=== PATIENT | male | born 1960 | race Caucasian/White ===

== ENCOUNTER 2017-10-22 12:03 | Emergency (ER) | payer SELFPAY ==
[~2017-10-22] VITALS: Ht 167.6 cm; Wt 50.0 kg
[~2017-10-22 12:03] MED LIST: ALBU6.7H INH; DOXY100T18 PO; PRED20 PO; TIOT12.9 INH
[2017-10-22 12:06] VITALS: BP 147/89; PULSE 92; RESP 32; O2SAT 97
[2017-10-22 13:00] LABS: AUTOMATED NEUTROPHIL # 4.9 TH/MM3 (1.8-7.7); BASOPHIL # 0.1 TH/MM3 (0-0.2); BASOPHIL % 1.2 % (0.0-2.0); EOSINOPHIL # 0.2 TH/MM3 (0-0.4); HEMATOCRIT 46.7 % (39.0-51.0); HEMOGLOBIN 15.4 GM/DL (13.0-17.0); LYMPH % 32.7 % (9.0-44.0); MEAN CELL VOLUME 100.6 FL (80.0-100.0); MEAN CORPUSCULAR HEMOGLOBIN 33.1 PG (27.0-34.0); MEAN CORPUSCULAR HGB CONC 32.9 % (32.0-36.0); MONO % 10.2 % (0.0-8.0); MONOCYTE # 0.9 TH/MM3 (0-0.9); NEUT % 53.9 % (16.0-70.0); PLATELET COUNT 327 TH/MM3 (150-450); RED BLOOD COUNT 4.64 MIL/MM3 (4.50-5.90); RED CELL DISTRIBUTION WIDTH 14.6 % (11.6-17.2); WHITE BLOOD COUNT 9.2 TH/MM3 (4.0-11.0)
--- NOTE | 2017-10-22 13:18 | PD ---
HPI Chief Complaint: Respiratory Symptoms Time Seen by Provider: 13:12 Travel History International Travel<30 days: No Contact w/Intl Traveler<30days: No Traveled to known affect area: No History of Present Illness HPI 57-year-old male with history of COPD, presents to the emergency department with worsening increased shortness of breath and cough over the past 1-1/2 weeks. Patient was last seen for this in September 2014. Patient has a long smoking history, and states he is currently down to 1 pack of cigarettes per day. Patient is unable to afford medications to treat his symptoms. He states he did buy a nebulizer from a friend but does not have the equipment or medication for it. Patient denies fever, chills, or other symptoms. He states his cough is not significantly productive. He has no local primary care physician. Patient states his breathing much worse, which he blames the weather for. Patient states he is having difficulty sleeping secondary to being short of breath. He denies pain, nausea, vomiting, or abdominal pain. He has no chest pain per se. He has no known drug allergies. PFSH Past Medical History COPD: Yes Diminished Hearing: No Musculoskeletal: Yes (CHRONIC BACK PAIN ) Respiratory: Yes Tetanus Vaccination: Unknown Past Surgical History Other Surgery: Yes (RECTAL ABCESS REPAIR - 1995) Social History Alcohol Use: No Tobacco Use: Yes Substance Use: Yes (MARIJUANA USE PRN) Allergies-Medications (Allergen,Severity, Reaction): Coded Allergies: No Known Allergies (Verified Allergy, Unknown, 10/22/17) Reported Meds & Prescriptions Reported Meds & Active Scripts Active Albuterol Neb (Albuterol Sulfate) 2.5 Mg/0.5 Ml Neb 2.5 Mg NEB QID NEB Note: The Albuterol Sulfate Inhalation Solution is concentrated and must be diluted. Read complete instructions carefully before using. Prednisone 20 Mg Tab 20 Mg PO BID 5 Days Azithromycin 500 Mg Tab 500 Mg PO DAILY Review of Systems Except as stated in HPI: all other systems reviewed are Neg General / Constitutional: No: Fever Eyes: No: Visual changes HENT: No: Headaches Cardiovascular: No: Chest Pain or Discomfort Respiratory: Positive: Cough, Shortness of Breath, Wheezing, No: Pleuritic Pain Gastrointestinal: No: Abdominal Pain Genitourinary: No: Dysuria Musculoskeletal: No: Pain Skin: No Rash Neurologic: No: Weakness Psychiatric: No: Depression Endocrine: No: Polydipsia Hematologic/Lymphatic: No: Easy Bruising Physical Exam Narrative GENERAL: Patient appears in no obvious distress. He does have mild pursed lip breathing. He is able speak in full sentences. SKIN: Warm and dry. Normal color. Normal turgor. HEAD: Atraumatic. Normocephalic. EYES: Pupils equal and round. No scleral icterus. No injection or drainage. ENT: No nasal bleeding or discharge. Mucous membranes pink and moist. TMs are clear. Pharynx is clear. Airways patent. NECK: Trachea midline. No JVD. Supple and nontender CARDIOVASCULAR: Regular rate and rhythm. No murmurs gallops or rubs. RESPIRATORY: No accessory muscle use. Moderate diffuse wheezes throughout to auscultation. No rales or rhonchi appreciated. No crackles breath sounds equal bilaterally. GASTROINTESTINAL: Abdomen soft, non-tender, nondistended. Hepatic and splenic margins not palpable. MUSCULOSKELETAL: Extremities without clubbing, cyanosis, or edema. No obvious deformities. NEUROLOGICAL: Awake and alert. No obvious cranial nerve deficits. Motor grossly within normal limits. Five out of 5 muscle strength in the arms and legs. Normal speech. PSYCHIATRIC: Appropriate mood and affect; insight and judgment normal. Data Data Last Documented VS Vital Signs Date Time Temp Pulse Resp B/P (MAP) Pulse Ox O2 Delivery O2 Flow Rate FiO2 10/22/17 13:31 18 100 Room Air 10/22/17 13:30 98.2 10/22/17 12:06 92 147/89 (108) Orders Orders Complete Blood Count With Diff (10/22/17 12:09) Basic Metabolic Panel (Bmp) (10/22/17 12:09) Chest, Pa & Lat (10/22/17 12:09) Iv Access Insert/Monitor (10/22/17 12:09) Ecg Monitoring (10/22/17 12:09) Oxygen Administration (10/22/17 12:09) Oximetry (10/22/17 12:09) Electrocardiogram (10/22/17 12:09) Albuterol-Ipratropium Neb (Duoneb Neb) (10/22/17 13:45) Prednisone (Deltasone) (10/22/17 13:45) Albuterol Hfa Inh (Proair Hfa Inh) (10/22/17 13:45) Azithromycin (Zithromax) (10/22/17 13:45) Labs Laboratory Tests Test 10/22/17 12:20 White Blood Count 9.2 TH/MM3 Red Blood Count 4.64 MIL/MM3 Hemoglobin 15.4 GM/DL Hematocrit 46.7 % Mean Corpuscular Volume 100.6 FL Mean Corpuscular Hemoglobin 33.1 PG Mean Corpuscular Hemoglobin Concent 32.9 % Red Cell Distribution Width 14.6 % Platelet Count 327 TH/MM3 Mean Platelet Volume 8.0 FL Neutrophils (%) (Auto) 53.9 % Lymphocytes (%) (Auto) 32.7 % Monocytes (%) (Auto) 10.2 % Eosinophils (%) (Auto) 2.0 % Basophils (%) (Auto) 1.2 % Neutrophils # (Auto) 4.9 TH/MM3 Lymphocytes # (Auto) 3.0 TH/MM3 Monocytes # (Auto) 0.9 TH/MM3 Eosinophils # (Auto) 0.2 TH/MM3 Basophils # (Auto) 0.1 TH/MM3 CBC Comment DIFF FINAL Differential Comment Blood Urea Nitrogen 18 MG/DL Creatinine 0.90 MG/DL Random Glucose 79 MG/DL Calcium Level 9.1 MG/DL Sodium Level 142 MEQ/L Potassium Level 4.9 MEQ/L Chloride Level 108 MEQ/L Carbon Dioxide Level 29.7 MEQ/L Anion Gap 4 MEQ/L Estimat Glomerular Filtration Rate 87 ML/MIN [facility] Medical Decision Making Medical Screen Exam Complete: Yes Emergency Medical Condition: Yes Medical Record Reviewed: Yes Differential Diagnosis COPD with acute exacerbation. Chronic bronchitis. Wheezing. CHF Narrative Course Labs ordered in triage including CBC, CMP, and blood cultures which were secondarily canceled. Chest x-ray PA and laterals ordered. Patient is given 60 mg prednisone p.o., as well as DuoNeb 3. Chest x-ray shows COPD without acute infiltrate noted. CBC is unremarkable. CMP is unremarkable Patient is given Ventolin metered-dose inhaler 2 puffs every 4-6 hours. Patient is given azithromycin 5 mg p.o. now will be continued on azithromycin daily for the next 5 days. Patient is given a prescription for prednisone 20 mg twice daily for 7 days. Patient is given albuterol metered-dose vials for his nebulizer to be used every 4-6 hours as needed #120. Patient is encouraged to quit smoking as soon as possible. Patient should follow-up with [facility] for further evaluation continue primary care treatment. Patient can return if symptoms worsen as needed. Diagnosis Primary Impression: COPD with acute exacerbation Additional Impression: Dyspnea on exertion Referrals: [facility] Patient Instructions: COPD (Chronic Obstructive Pulmonary Disease) (ED), General Instructions, How to Stop Smoking (DC), How to Use a Nebulizer (ED) Additional Instructions: Chest x-ray shows COPD without acute infiltrate noted. CBC is unremarkable. CMP is unremarkable Patient is given Ventolin metered-dose inhaler 2 puffs every 4-6 hours. Patient is given azithromycin 5 mg p.o. now will be continued on azithromycin daily for the next 5 days. Patient is given a prescription for prednisone 20 mg twice daily for 7 days. Patient is given albuterol metered-dose vials for his nebulizer to be used every 4-6 hours as needed #120. Patient is encouraged to quit smoking as soon as possible. Patient should follow-up with [facility] for further evaluation continue primary care treatment. Patient can return if symptoms worsen as needed. Med/Other Pt SpecificInfo: Prescription(s) given Scripts Albuterol Neb (Albuterol Neb) 2.5 Mg/0.5 Ml Neb 2.5 MG NEB QID NEB for Breathing Treatment, #120 NEBULE 0 Refills Note: The Albuterol Sulfate Inhalation Solution is concentrated and must be diluted. Read complete instructions carefully before using. Prov: Peewee Vickers MD 10/22/17 Prednisone (Prednisone) 20 Mg Tab 20 MG PO BID for 5 Days, #10 TAB 0 Refills Prov: Peewee Vickers MD 10/22/17 Azithromycin (Azithromycin) 500 Mg Tab 500 MG PO DAILY for Infection, #5 TAB 0 Refills Prov: Peewee Vickers MD 10/22/17 Disposition: 01 DISCHARGE HOME Condition: Stable Gomez Peter Oct 22, 2017 13:18
[2017-10-22 13:22] LABS: BICARBONATE 29.7 MEQ/L (21.0-32.0); CALCIUM 9.1 MG/DL (8.5-10.1); CREATININE 0.9 MG/DL (0.60-1.30)
[2017-10-22 13:30] VITALS: TEMP 98.2
--- NOTE | 2017-10-22 13:30 | RADRPT ---
EXAM DATE: 10/22/2017 1:25 PM EDT AGE/SEX: 57 years / Male INDICATIONS: Short of breath. CLINICAL DATA: This is the patient's initial encounter. Patient reports that signs and symptoms have been present for 1 day and indicates a pain score of 0/10. MEDICAL/SURGICAL HISTORY: Chronic obstructive pulmonary disease. smokes None. COMPARISON: No prior exams available for comparison. FINDINGS: Lungs are moderately hyperinflated but clear.. The cardiomediastinal contours are unremarkable. [place] us structures are intact. CONCLUSION: Moderate hyperinflation otherwise negative Electronically signed by: Polo Serna MD 10/22/2017 1:29 PM EDT
[2017-10-22 13:31] VITALS: RESP 18; O2SAT 100
[2017-10-22] MEDS ORDERED: AZIT500T2 PO (13:39)
[2017-10-22] MEDS ORDERED: ALBU.5I NEB (13:39)
[2017-10-22] MEDS ORDERED: PRED20 PO (13:39)
[2017-10-22] MEDS ORDERED: AZITHROMYCIN 250 MG TAB PO ONE (13:45)
[2017-10-22] MEDS ORDERED: predniSONE 20 MG TAB PO ONE (13:45)
[2017-10-22] MEDS ORDERED: ALBUTEROL SULFATE 90 MCG/ACT HFA 8 GM INHALER INH SCH (13:45)
[2017-10-22] MEDS: RESP: ALBUTEROL 2.5 MG/IPRATROPIUM 0.5 MG NEB (SCH) INH (13:46)
== END 2017-10-22 15:24 | disposition home or self-care (01) ==
LOC: NEPC 12:03
DX: J44.1 Chronic obstructive pulmonary disease with (acute) exacerbation (principal); F12.90 Cannabis use, unspecified, uncomplicated; F17.210 Nicotine dependence, cigarettes, uncomplicated
CPT/HCPCS: 71046; 80048; 85025; 94640; 94664; 99284; J7512